=== PATIENT | male | born 1955 | race Caucasian/White ===

== ENCOUNTER → 2018-07-09 | Emergency (ER) | payer OTHER ==
[~2018-07-09] VITALS: Ht 162.6 cm; Wt 80.3 kg
[~2018-07-09] MED LIST: COZAAR25 MG; SYNTHROID50 MCG
== END | disposition home or self-care (01) ==
LOC: ER 07:17
DX: R33.8 Other retention of urine (principal)

== ENCOUNTER 2019-06-02 07:55 | Emergency (ER) | payer OTHER ==
[~2019-06-02] VITALS: Ht 167.6 cm; Wt 86.2 kg
== END 2019-06-02 09:36 | disposition home or self-care (01) ==
LOC: ER 07:55
DX: R05 Cough (principal)

== ENCOUNTER → 2021-01-12 | Emergency (ER) | payer OTHER | END | disposition left against medical advice (07) | LOC: ER 10:35 | DX: Z53.21 Procedure and treatment not carried out due to patient leaving prior to being seen by health care provider (principal) ==